=== PATIENT | female | born 1990 | race Caucasian/White ===

== ENCOUNTER → 2021-02-03 | Outpatient (CLI) | payer BC | LOC: EXRD 11:06 | DX: M25.551 Pain in right hip (principal); M54.31 Sciatica, right side | CPT/HCPCS: 72100; 73502 ==

== ENCOUNTER → 2021-02-15 | Outpatient (CLI) | payer BC | LOC: EXRD 07:51 | DX: R10.9 Unspecified abdominal pain (principal); K76.0 Fatty (change of) liver, not elsewhere classified | CPT/HCPCS: 76700 ==